=== PATIENT | male | born 1995 | race Caucasian/White ===

== ENCOUNTER 2024-04-18 07:17 | Emergency (ER) | payer MEDICAID, OTHER ==
[~2024-04-18] VITALS: Ht 175.3 cm; Wt 67.4 kg
[2024-04-18 07:19] VITALS: BP 148/81; PULSE 86; RESP 18; TEMP 98.3; O2SAT 99
[2024-04-18 07:36] VITALS: O2SAT 99
[2024-04-18 08:44] LABS: HIV RAPID SCREEN NON-REACTIVE (NON REACTIV)
[2024-04-18 09:44] LABS: APPEARANCE,URINE CLEAR (CLEAR); BILIRUBIN,URINE NEGATIVE (NEGATIVE); BLOOD, URINE TRACE-I (NEGATIVE); COLOR,URINE YELLOW (YELLOW); LEUKOCYTE ESTERASE ,URINE NEGATIVE (NEGATIVE); NITRITE, URINE NEGATIVE (NEGATIVE); PH,URINE 6.5 (5.0-9.0); PROTEIN,URINE NEGATIVE (NEGATIVE); UGLUCOSE NEGATIVE (NEGATIVE); UROBILINOGEN,URINE 0.2 EU/dL (0.2 - 1)
[2024-04-18 09:55] LABS: RBC,URINE 0-5 /HPF (0-5); WBC,URINE 0-5 /HPF (0-5)
[2024-04-18 09:56] LABS: BACTERIA,URINE OCCASSIONAL /HPF (None Seen); SQUAMOUS EPITHELIAL CELL,UR 0-3 (FEW) /LPF (0-3 (FEW))
[2024-04-18 10:08] VITALS: BP 148/81; PULSE 86; RESP 18; TEMP 98.3; O2SAT 99
[2024-04-18 11:27] LABS: RAPID PLASMA REAGIN NON-REACTIVE (Non Reactiv)
== END 2024-04-18 10:08 | disposition home or self-care (01) ==
LOC: MED 07:17
DX: L29.9 Pruritus, unspecified (principal); K13.79 Other lesions of oral mucosa; R21 Rash and other nonspecific skin eruption; F12.90 Cannabis use, unspecified, uncomplicated; F17.200 Nicotine dependence, unspecified, uncomplicated
CPT/HCPCS: 81001; 86592; 87491; 99283

== ENCOUNTER 2024-08-04 19:32 | Emergency (ER) | payer MEDICAID, OTHER ==
[~2024-08-04] VITALS: Ht 175.3 cm; Wt 64.0 kg
[2024-08-04 19:46] VITALS: BP 159/97; PULSE 96; RESP 19; TEMP 98.6; O2SAT 99
[2024-08-04 22:10] LABS: BASOPHILS # (AUTO) 0.1 K/uL (0.00-0.22); BASOPHILS % (AUTO) 0.8 % (0.0-2.0); EOSINOPHILS % (AUTO) 0.3 % (0.0-4.0); HEMATOCRIT 42.6 % (36-52); HEMOGLOBIN 14.9 g/dL (12.0-18.0); LYMPHOCYTES # (AUTO) 1.6 K/uL (2.0-11.5); LYMPHOCYTES % (AUTO) 17.5 % (20.5-51.1); MEAN CORPUSCULAR HEMOGLOBIN 29 pg (27-31); MEAN CORPUSCULAR HGB CONC 35 g/dL (33-37); MEAN CORPUSCULAR VOLUME 81.8 fL (80-94); MONOCYTES # (AUTO) 0.6 K/uL (0.8-1.0); MONOCYTES % (AUTO) 6.9 % (1.7-9.3); NEUTROPHILS # (AUTO) 6.9 K/uL (1.8-7.7); NEUTROPHILS % (AUTO) 74.5 % (42.2-75.2); PLATELET COUNT (AUTO) 331 K/uL (140-450); RED BLOOD CELL COUNT(AUTO) 5.21 MIL/uL (4.20-6.10); RED CELL DISTRIBUTION WIDTH 13.1 % (11.6-13.7); WHITE BLOOD COUNT (AUTO) 9.3 K/uL (4.8-10.8)
[2024-08-04 22:18] LABS: CALCIUM 8.9 mg/dL (8.5-10.1); CARBON DIOXIDE 31.9 mmol/L (21-32); CREATININE 1.4 mg/dL (0.6-1.3); POTASSIUM 3.9 mmol/L (3.5-5.1)
[2024-08-04 22:22] LABS: AMPHETAMINE, URINE NEGATIVE ng/ml (NEG <=1000); BARBITURATE, URINE NEGATIVE ng/ml (NEG <=200); BENZODIAZEPINE, URINE NEGATIVE ng/mL (NEG <=200); CANNABINOID, URINE NEGATIVE ng/mL (NEG <=50); COCAINE, URINE NEGATIVE ng/mL (NEG <=300); OPIATE, URINE NEGATIVE ng/mL (NEG <=2000); PHENCYCLIDINE SCREEN,URINE NEGATIVE ng/mL (NEG <=25)
[2024-08-04 22:45] VITALS: BP 159/97; PULSE 96; RESP 19; TEMP 98.6; O2SAT 99
== END 2024-08-04 22:45 | disposition home or self-care (01) ==
LOC: MED 19:32
DX: R20.0 Anesthesia of skin (principal); R20.2 Paresthesia of skin; F41.9 Anxiety disorder, unspecified
CPT/HCPCS: 36415; 80048; 80305; 84443; 85025; 99283